=== PATIENT | female | born 1930 | race Caucasian/White ===

== ENCOUNTER 2016-12-09 20:47 | Inpatient (IN) | payer MEDICARE, OTHER ==
--- NOTE | ~2016-12-09 | CR72 ---
[facility] A Service of [facility] RADIOLOGY TEXT RESULTS PATIENT: IBETH BARNES LOCATION: [address] : 29 UNIT #: [id number] AGE: [address]: Ina Mcneil MD SEX: F ORDER DR: [id number] [facility] [address] [place], [place] [address] [id number] MR#: [id number] Acc #: [id number] NAME: IBETH BARNES : 1930 SEX: F STUDY DATE/TIME: 12/10/2016 0902 UNIT: [facility] ROOM: [facility] STUDY DESCRIPTION: CR Chest Single View Portable Attending Physician: Ina Mcneil M.D. Ordering Physician: Donna Del Toro M.D. Primary Care Physician: Herbert Maya M.D. MEDICAL IMAGING REPORT This report is preliminary unless electronic signature is present EXAM Chest, portable, 12/10/2016, 0902 hours. CLINICAL HISTORY 78-year-old woman with abdominal distension for 2 days. Central line placement today. COMPARISON 08/17/2012 FINDINGS Portable upright chest demonstrates low lung volumes. Endotracheal tube is 1.5 cm above the oswaldo. There is a left subclavian dual lead pacer with leads over the right atrium and right ventricle. There is a right IJ catheter with tip in the lower aspect of the right atrium. If it is desired to have the tip in the SVC, I would suggest withdrawing the catheter 7-8 cm. Cardiac size is increased from 2012. There is mild pulmonary vascular prominence without definite edema, effusion, or pneumothorax. There is gaseous distension of loops of bowel seen in the upper abdomen. IMPRESSION 1. Low lung volume film with moderate enlargement of the cardiac silhouette increased from 08/17/2012. Findings could represent worsening cardiomegaly and/or pericardial fluid. 2. Endotracheal tube tip is 1.5 cm above the oswaldo. 3. Right IJ catheter tip is in the inferior aspect of the right atrium. If it is desired to have the tip in the SVC, I would suggest withdrawing the catheter 7-8 cm. 4. Dual lead left subclavian pacer/AICD has leads terminating over the right atrium and right ventricle. There is no pneumothorax. 5. Mild perihilar vascular crowding without definite edema or effusion. [facility] A Service of [facility] RADIOLOGY TEXT RESULTS PATIENT: IBETH BARNES LOCATION: [address] : 29 UNIT #: [id number] AGE: [address]: Ina Mcneil MD SEX: F ORDER DR: Dictated by... Gin Ross M.D. THIS IS AN ELECTRONICALLY VERIFIED REPORT Gin Ross M.D. at 12/10/2016 2:32 PM RAYA/destiny TD: 12/10/2016 09:44 JOB #: [id number] MEDICAL IMAGING REPORT Page 1 of 1 COPY
--- NOTE | ~2016-12-09 | CO ---
Unit #: [id number] #: [id number] Patient: IBETH BARNES [id number] [address] [place], [place] [address] [id number] MR#: [id number] NAME: IBETH BARNES ROOM: [facility] Age: 86 Sex: F Admission Date: 12/10/2016 : 1930 Attending Physician: Ina Mcneil M.D. Primary Care Physician: Herbert Maya M.D. Consultation Date: 12/10/2016 CONSULTATION REPORT REASON FOR CONSULTATION Acute on chronic kidney disease. HISTORY OF PRESENT ILLNESS Ms. Barnes is an 86-year-old female who is currently sedated and on the ventilator and unable to give any history. All of the history was obtained from the chart, nursing and family who is present. The patient has known chronic kidney disease and sees my partner, Dr. Martin at the office. It looks like her baseline creatinine is in the low to mid 1 range. She does have a history of hypertension and heart disease. The patient has chronic pain issues and takes oxycodone for that. She has severe arthritic issues. She had presented to an outlying hospital with complaints of abdominal pain and constipation. This was associated with nausea and vomiting as well as abdominal distension. It looks like they tried to do a disimpaction in the emergency room and also a soap suds enema. The patient decompensated overnight and has been moved to the ICU with respiratory failure and ventilator requirement. She is basically making no urine at this time. Surgery is being considered by the family. She is also severely acidotic, requiring the ventilator and bicarbonate supplementation. No rashes or itching noted. She is noted to be on an YASMIN inhibitor and a diuretic at home. PAST MEDICAL HISTORY 1. Chronic kidney disease stage 3. 2. Hypertension. 3. Congestive heart failure requiring a defibrillator. Ejection fraction unknown. 4. Chronic neck and back pain as well as joint pain. 5. Hyperlipidemia. 6. Migraine headaches. 7. Gastroesophageal reflux disease with AVMs. 8. Degenerative joint disease. 9. Spinal stenosis. 10. Valvular heart disease. PAST SURGICAL HISTORY 1. Appendectomy. 2. Hysterectomy. 3. Breast biopsies. SOCIAL HISTORY The patient is a lifelong nonsmoker. No alcohol or drug abuse. She cares for a younger daughter with Down syndrome who is actually in the ICU a couple of beds down. Unit #: [id number] #: [id number] Patient: IBETH BARNES FAMILY HISTORY Negative for kidney disease or dialysis. There is a family history of cancer and high blood pressure. ALLERGIES Morphine, hydantoins, penicillin, phenytoin and Tolectin. HOME MEDICATIONS 1. Amitriptyline. 2. Zocor. 3. Aspirin. 4. Amlodipine. 5. Carvedilol. 6. Lisinopril. 7. Aldactone. 8. OxyContin. 9. Klonopin. 10. Prilosec. 11. Lasix. REVIEW OF SYSTEMS A complete 12-point review of systems was attempted, but simply unable to be obtained with the patient being on the ventilator. I am unaware of any reports of bright red blood per rectum or melena with these GI issues. No reports of hematuria. Unless otherwise indicated, the review of systems was not able to be obtained. PHYSICAL EXAMINATION GENERAL: This is an 86-year-old female, sedated and on the ventilator, currently in no acute distress. VITALS: Afebrile, pulse 98, respiratory rate 20, blood pressure got as low as 40s on the monitor. Currently slightly above 100. Ins and outs, urine output minimal to none. HEENT: Head is atraumatic, normocephalic. Eyes show pink conjunctivae with no scleral icterus. No nosebleed. She does have an NG tube to suction in place. The patient is orally intubated. NECK: No rigidity. LUNGS: Coarse breath sounds bilaterally with no wheezing. Breathing is nonlabored on the ventilator. HEART: Currently regular rate with murmur present. No gallop or rub appreciated. ABDOMEN: Distended and firm. No bowel sounds present. Appears tender, but difficult to assess with her being sedated. EXTREMITIES: No lower extremity cyanosis or pitting edema. SKIN: Dry with no rashes. GENITOURINARY: Iverson catheter is in place with minimal nonbloody urine. MUSCULOSKELETAL: The patient does have chronic arthritic changes in her hands. No joint effusions noted. LYMPH: There is no neck or cervical lymphadenopathy. PSYCHIATRIC: Unable to assess. NEUROLOGIC: Unable to assess. DIAGNOSTIC STUDIES IMAGING: CT of the abdomen and pelvis without contrast showed kidneys had no evidence of obstruction or stones. There was marked distension of the transverse colon and increased stool throughout the sigmoid colon with possible fecal impaction. Unit #: [id number] #: [id number] Patient: IBETH BARNES Chest x-ray earlier this morning showed an AICD in place. Mild perivascular vascular crowding without edema or effusion. LABORATORY: CBC today, white blood cell count 14, hemoglobin 11, platelets 217. Most recent ABG showed a pH of 7.34, pCO2 37, pO2 373, bicarb 20. TSH was normal. Initial ABG this morning when she decompensated pH was 7, pCO2 59, pO2 83, bicarb 15. Chemistry last night, sodium 135, potassium 4, chloride 105, bicarb 17, glucose 260, BUN 45, creatinine 2.3. Prior creatinines before this, in 2013, ranged between 1.1 and 1.5. Previous urinalysis testing has been negative for blood or protein. CARDIOVASCULAR: In January 2008 her echo showed moderate mitral regurgitation, moderate to severe tricuspid regurgitation, with some mild pulmonary hypertension. ASSESSMENT 1. Acute on chronic kidney disease stage 3. Again, the patient does have underlying chronic kidney disease and sees my partner in the office. It looks to be related to nephrosclerosis with her history of hypertension and bland urinalysis in the past. Her acute kidney injury is likely all prerenal and transitioning into ATN from abdominal sepsis and hypotension. She would also have altered renal compensation with her lisinopril use. She was also on Lasix and Aldactone for her heart failure, which may be contributing to the prerenal picture as well. All of her diuretics and blood pressure medicines have been held. She will need dialysis and the family has decided on surgery, so we will be doing SILVERING APPLICATOR immediately postoperative and I have already talked to Dr. Del Toro about placing a Shiley. 2. Hypotension. The patient's blood pressure has come up with multiple fluid boluses and pressors, which we will continue. 3. Abdominal sepsis on antibiotics. 4. Combined acidosis. The patient is now on the ventilator and has received IV bicarbonate times five. 5. History of hypertension. 6. History of congestive heart failure with atrial implantable cardioverter defibrillator placement, as well as valvular heart disease and pulmonary hypertension. 7. Respiratory failure. 8. Chronic pain syndrome. 9. History of GAZE, which may be related to right-sided heart failure and pulmonary hypertension. 10. I did discuss with the large family at length. I do think her prognosis is very poor. They were discussing whether or not to take her to surgery and they will be relaying their answer to Dr. Watts. If they decide to go ahead and proceed with surgery, we will plan on doing SILVERING APPLICATOR immediately postop. 11. I did discuss this case with Dr. Zepeda and Dr. Del Toro. I would like to thank Dr. Zepeda for this consult and the opportunity to participate in the evaluation and care of Ms. Barnes. Dictated by... Malcolm Wayne Jr., M.D. [facility]matthew Unit #: [id number] #: [id number] Patient: IBETH BARNES TD: 12/10/2016 13:52 JOB #: [id number] CONSULTATION REPORT Page 1 of 1 X Malcolm Wayne MD X CONSULTATION REPORT
--- NOTE | ~2016-12-09 | HP ---
Unit #: [id number] #: [id number] Patient: IBETH BARNES [id number] [address] [address] [id number] MR#: [id number] NAME: IBETH BARNES ROOM: 219 Age: 86 Sex: F Admission Date: 12/10/2016 : 1930 Attending Physician: Ina Mcneil M.D. Primary Care Physician: Herbert Maya M.D. HISTORY AND PHYSICAL CHIEF COMPLAINT Obstipation, fecal impaction, acute kidney injury. HISTORY OF PRESENT ILLNESS This 86-year-old female who has chronic pain issues, on chronic oxycodone, chronic kidney disease, was transferred from [facility] emergency department for increasing abdominal pain and constipation. The patient's last bowel movement was a week ago. Yesterday, the patient developed generalized abdominal pain with nausea, vomiting and abdominal distension. The patient recently developed decreased p.o. intake and decreased urinary output yesterday. She presented to [facility] emergency department late last evening where a CT scan shows markedly distended colon with increased stool in the sigmoid, probable constipation with possible fecal impaction. She was partially disimpacted by the ER physician at [facility] ER and given a soap suds enema without much output. A Iverson catheter was placed and the patient had little, if any, urine output. She was given Zofran, IV fluids and a tiny dose of Dilaudid before midnight. She was sent to this facility where she does have marked abdominal distension on exam and generalized abdominal tenderness. According to the nurse, the patient still has significant stool in the rectal vault. A colonoscopy was performed 10/2013 for obstipation and the patient's colon was normal. PAST MEDICAL HISTORY 1. Chronic neck and back pain. 2. Essential hypertension. 3. Chronic kidney disease. 4. Hyperlipidemia. 5. Migraine headaches. 6. GERD and hiatal hernia. An EGD was performed 10/2013 revealing a medium sized hiatal hernia, classic watermelon stomach with AVMs which were ablated. 7. DJD. 8. Spinal stenosis status post epidural steroid injections. 9. History of valvular heart disease. 10. Appendectomy. 11. Total abdominal hysterectomy. 12. Benign breast biopsies. SOCIAL HISTORY The patient takes care of her younger daughter with Down syndrome. The Unit #: [id number] #: [id number] Patient: IBETH BARNES patient herself is a lifelong nonsmoker, does not drink alcohol. FAMILY HISTORY Hypertension and throat cancer. ALLERGIES Morphine, Dilantin, penicillin, Tolectin. HOME MEDICATIONS I have a medication reconciliation from [facility]. We will verify these medicines. These list: 1. Elavil 50 mg daily. 2. Zocor 20 mg daily. 3. Aspirin 81 mg daily. 4. Norvasc 5 mg daily. 5. Coreg 6.25 mg b.i.d. 6. Lisinopril 5 mg daily. 7. Aldactone 12.5 mg daily. 8. Oxycodone 10 mg q.i.d. 9. Klonopin 0.5 mg q.i.d. 10. Prilosec 20 mg daily. 11. Lasix 20 mg daily. REVIEW OF SYSTEMS Notable for abdominal pain, hypertension, chronic kidney disease, hyperlipidemia, migraines, GERD, DJD, spinal stenosis, above-mentioned surgeries, constipation, abdominal pain, nausea, vomiting and distension. All other systems were reviewed and are negative. PHYSICAL EXAMINATION GENERAL APPEARANCE: Uncomfortable appearing, somewhat pale, 86-year-old female. VITAL SIGNS: Temperature 97.7. Pulse 81. Respiration 16. Blood pressure 126/61. O2 saturation 97% on room air. HEENT: Eyes: PERRLA. Extraocular muscles are intact. Pharynx is benign. NECK: Supple without adenopathy or thyromegaly. CHEST: Clear. CARDIAC: Normal S1, S2 without S3, S4 or murmur. ABDOMEN: Bowel sounds are extremely hypoactive. Abdomen is distended. The patient has generalized abdominal tenderness without guarding or rebound. EXTREMITIES: Without clubbing, cyanosis or edema. NEUROLOGIC: The patient is awake, alert. She is oriented. Her cranial nerves are intact. She has equal strength throughout but is quite weak on exam. DIAGNOSTIC STUDIES LABORATORY: Hematocrit 42.9, WBC count 13.2, normal platelet count. SMA-12: Glucose 260, BUN 45, creatinine 2.3, CO2 17. Previous creatinine was 1.1 three years ago. IMAGING: CT scan shows marked distension of the colon with constipation, stool in the sigmoid region and fecal impaction, large hiatal hernia. ASSESSMENT 1. Fecal impaction/obstipation. No BM times one week. The patient presents with nausea, vomiting, abdominal pain and CT scan showing marked distension of the colon. Last colonoscopy was 2013 and was Unit #: [id number] #: [id number] Patient: IBETH BARNES normal. 2. Acute on chronic kidney disease. 3. Essential hypertension. 4. Chronic pain issues on opiates. 5. GERD with last EGD revealing watermelon stomach and AVMs. 6. Diet controlled AODM with hyperglycemia. PLAN 1. IV fluids. 2. Disimpaction. 3. Repeat labs this morning. 4. Hold diuretics, Elavil, oxycodone. 5. SCDs for DVT prophylaxis. 6. Obtain TSH. 7. Consultants depending on response to above. 8. Send urinalysis after IV fluids have been started. Dictated by Imelda Morales M.D. AML/bd TD: 12/10/2016 07:08 JOB #: [id number] HISTORY AND PHYSICAL Page 1 of 1 X Imelda Morales MD X HISTORY AND PHYSICAL
--- NOTE | ~2016-12-09 | OR ---
Unit #: [id number] #: [id number] Patient: IBETH BARNES [id number] [address] [address] [id number] I MR#: [id number] NAME: IBETH BARNES ROOM: [facility] Date of Procedure: 12/10/2016 Admission Date: 12/10/2016 Surgeon: Donna Del Toro M.D. : 1930 Attending Physician: Ina Mcneil M.D. Primary Care Physician: Herbert Maya M.D. PROCEDURE OPERATIVE NOTE PREOPERATIVE DIAGNOSIS Respiratory failure, shock. POSTOPERATIVE DIAGNOSIS Respiratory failure, shock. PROCEDURE PERFORMED 1. Endotracheal intubation. 2. Right internal jugular central venous catheter placement for shock. 3. Right femoral arterial line placement. INDICATION Respiratory failure. ANESTHESIA MAC. PROCEDURE 1. After placing the patient in the appropriate position with all aseptic technique, a #18 endotracheal tube was passed through the vocal cord under direct visualization. No complications happened. Post procedure chest x-ray was ordered. 2. Right neck was prepped with ChloraPrep and a triple lumen central venous catheter was inserted in the right internal jugular vein. The guidewire was removed in total and line was secured with two interrupted sutures in place. No complications happened. All three ports were flushed and working. Chest x-ray was ordered. No complications happened. 3. With modified Seldinger technique, under all aseptic technique, after preparing the skin of the right groin with ChloraPrep, a 20 gauge arterial catheter was placed in the right femoral vein. Good plethysmography on the monitor. The patient tolerated the procedure very well. The line was secured with one interrupted suture in place. No complications happened. Sterile dressing was applied. Dictated by... Jazzy Romero Unit #: [id number] #: [id number] Patient: IBETH BARNES TD: 12/10/2016 16:13 JOB #: [id number] PROCEDURE OPERATIVE NOTE Page 1 of 1 X Alverto,Sajjad MD X PROCEDURE OPERATIVE NOTE
--- NOTE | ~2016-12-09 | CO ---
Unit #: [id number] #: [id number] Patient: IBETH BARNES [id number] [address] [address] [id number] I MR#: [id number] NAME: IBETH BARNES ROOM: [facility] Age: 86 Sex: F Admission Date: 12/10/2016 : 1930 Attending Physician: Ina Mcneil M.D. Primary Care Physician: Herbert Maya M.D. CONSULTATION REPORT CHIEF COMPLAINT Abdominal pain. REASON FOR CONSULTATION Critical care management. HISTORY OF PRESENT ILLNESS The patient is an 86-year-old female with a past medical history of chronic pain on chronic oxycodone, chronic kidney disease, and presents with a complaint of abdominal pain. She was found to have constipation with bowel obstruction and was transferred to the ICU for code blue. I responded. The patient was agonally breathing and I intubated her with a size 8 endotracheal tube. Currently she is hypotensive on the ventilator. PAST MEDICAL HISTORY 1. Chronic pain. 2. Chronic kidney disease. 3. Hypertension. 4. Gastroesophageal reflux disease. 5. Spinal stenosis. PAST SURGICAL HISTORY Appendectomy. SOCIAL HISTORY Nonsmoker. No alcohol or drug abuse. FAMILY HISTORY Hypertension, throat cancer. ALLERGIES Morphine, Dilantin, penicillin, Tolectin. CURRENT MEDICATIONS Reviewed. REVIEW OF SYSTEMS Unobtainable. PHYSICAL EXAMINATION VITALS: Temperature 99, pulse 88, blood pressure 90/60. LUNGS: Bilateral air entry. Bilateral mild rhonchi. HEART: S1 plus S2. ABDOMEN: Distended. Bowel sounds absent. Unit #: [id number] #: [id number] Patient: IBETH BARNES EXTREMITIES: No edema. NEUROLOGIC: Unresponsive. DIAGNOSTIC STUDIES IMAGING: Reviewed. LABORATORY: Reviewed. ASSESSMENT 1. Acute hypoxic respiratory failure. 2. Metabolic acidosis. 3. Acute renal failure. 4. Bowel obstruction. 5. Septic shock. 6. Possible necrotic bowel. PLAN At this point the plan is to continue the patient on ventilator support, broad spectrum IV antibiotics, IV fluids, may need dialysis. Surgical consultation. The patient will be closely monitored. Total critical care time is 75 minutes in direct critical care of this patient. Dictated by... Donna Del Toro M.D. Karine TD: 12/10/2016 16:06 JOB #: [id number] CONSULTATION REPORT Page 1 of 1 X Donna Del Toro MD CONSULTATION REPORT
--- NOTE | ~2016-12-09 | CO ---
Unit #: [id number] #: [id number] Patient: IBETH BARNES [id number] [address] [address] [id number] MR#: [id number] NAME: IBETH BARNES ROOM: [facility] Age: 86 Sex: F Admission Date: 12/10/2016 : 1930 Attending Physician: Ina Mcneil M.D. Primary Care Physician: Herbert Maya M.D. Consultation Date: 12/10/2016 CONSULTATION REPORT HISTORY AND EXAM Ms. Barnes is an 86-year-old female who has had a long history of opioid-induced constipation and chronic abdominal pain. Over the last 24 hours, she became more distended, having more discomfort, and came to the emergency room where a CT scan was consistent with impaction. There was no evidence of any perforation or other acute abnormalities. Patient had a history of multiple co-morbid conditions most significantly cardiovascular disease and peripheral vascular disease. While in the unit, she had an arrest and was noted to have a markedly distended abdomen. A pH was noted to be 7. She was resuscitated by the tar heater and she currently is on Levophed and Inder-Synephrine with a blood pressure of 46/31. Fluid and bicarbonate resuscitation has been ordered. Repeat labs have been ordered and are pending at this time. PAST MEDICAL HISTORY 1. Chronic pain syndrome. 2. Hypertension. 3. Chronic kidney disease. 4. Hyperlipidemia. 5. Migraine headaches. 6. Reflux. 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 8. Degenerative disk disease. 9. Spinal stenosis. 10. Valvular heart disease. 11. Pacemaker placement. 12. Appendectomy. 13. Total abdominal hysterectomy. 14. Previous breast biopsies. 15. Diabetes. ALLERGIES Morphine, Dilantin, penicillin, and Tolectin. CURRENT MEDICATIONS 1. Protonix. 2. Zofran. 3. Zocor. 4. MiraLax. 5. Levophed. 6. Inder-Synephrine. 7. Sodium bicarbonate. 8. Versed. 9. Fentanyl. Unit #: [id number] #: [id number] Patient: IBETH BARNES 10. Dilaudid. HOME MEDICATIONS 1. Elavil. 2. Zocor. 3. Aspirin. 4. Norvasc. 5. Coreg. 6. Lisinopril. 7. Aldactone. 8. Oxycodone. 9. Klonopin. 10. Prilosec. 11. Lasix. FAMILY HISTORY Diabetes and hypertension and laryngeal carcinoma. SOCIAL HISTORY Patient is a nonsmoker, nondrinker. Previously lived at home with a special needs daughter. REVIEW OF SYSTEMS Unobtainable. PHYSICAL EXAMINATION VITAL SIGNS: Current vital signs: Temperature is 97.6, pulse 98, respirations 22, blood pressure 46/31. GENERAL: The patient is intubated and sedated. HEENT: Unremarkable. Regular rhythm. LUNGS: Clear anteriorly. ABDOMEN: Markedly distended and tympanic. There is no mass. The abdomen is not rigid but exam is not reliable due to pain medication and sedation and sepsis. EXTREMITIES: No edema. DIAGNOSTIC STUDIES LABORATORY: Repeat chemistries are pending. Blood gas shows a pH of 7.001, pCO2 of 59.5, pO2 of 83 on 100% FIO2. Repeat CBC shows a hemoglobin of 12.4, white count 18,400 with 15% bands, platelets 223,000. Lactic acid, procalcitonin, chemistries pending. IMAGING: KUB this morning shows no free air. Chest x-ray this morning shows no free air. CT scan last night showed a chronically distended colon with impaction in the rectosigmoid. ASSESSMENT AND PLAN Patient with sepsis and intra-abdominal catastrophe probably related to ischemic bowel, although there is a possibility of bowel perforation. There does not appear to be any free air on chest x-ray or KUB. Given her past medical history and her arrest, she probably has diffuse ischemic bowel. She is being aggressively resuscitated at this time. I have discussed the severity of the situation with the family and discussed at length the differential diagnosis. At this time, this patient is at a high risk of demise. We discussed the possibility of surgical exploration Unit #: [id number] #: [id number] Patient: BARNESIBETH to confirm the diagnosis and to see if there is a surgically resectable cause of the acute sepsis that may improve her chances of survival but even with surgery, her chance of survival is very low. This is certainly a high-risk procedure. We also discussed that if they opt not to have surgery that we will continue to resuscitate her and support her and see if she can recover with nonoperative management. At this time, we are awaiting repeat labs. We are continuing resuscitation and the family is meeting to discuss their options. Dictated by... Korey Watts M.D. Shari TD: 12/10/2016 12:01 JOB #: [id number] CONSULTATION REPORT Page 1 of 1 X Korey Watts MD X CONSULTATION REPORT
--- NOTE | ~2016-12-09 | DS ---
Unit #: [id number] #: [id number] Patient: IBETH BARNES [id number] [address] [address] [id number] I MR#: [id number] NAME: IBETH BARNES ROOM: [facility] Age: 86 Sex: F Admission Date: 12/10/2016 : 1930 Discharge Date: 12/10/2016 Attending Physician: Ina Mcneil M.D. Primary Care Physician: Herbert Maya M.D. DISCHARGE SUMMARY SUMMARY DATE OF December 10, 2016 PRINCIPAL DIAGNOSES 1. Septic shock secondary to acute abdomen. 2. Acute abdomen, question diffuse ischemic colitis versus perforated viscus. 3. Acute hypoxic respiratory failure. 4. Acute kidney injury. 5. Severe mixed respiratory and metabolic acidosis. 6. Chronic kidney disease stage 3. CONSULTANTS 1. Dr. Del Toro, Pulmonology. 2. Dr. Wayne, Nephrology. 3. Dr. Watts, General Surgery. PROCEDURES 1. CT scan of the abdomen and pelvis, on December 09, 2016, with a large paraesophageal hiatal hernia. Marked distension of transverse colon was noted. Increased stool throughout the sigmoid colon noted. Fecal impaction noted. 2. Chest x-ray, on December 10, 2016, with low lung volumes and cardiac enlargement. 3. KUB, on December 10, 2016, with gaseous distension and multiple loops of bowel. CLINICAL HISTORY AND HOSPITAL COURSE Ms. Barnes is an 86-year-old female brought to the emergency department with complaints of abdominal pain. The patient was having decreased urine output and decreased stool output. Please refer to H and P for further details. CT scan of the abdomen and pelvis revealed only significant obstipation in addition to a fecal impaction. The patient underwent manual disimpaction in the ER. Creatinine was also found to be elevated at 2.3, up from a last known baseline of approximately 1.1. The patient was subsequently admitted. The patient was initially admitted to the med/surg floor and was stable. However, the patient abruptly developed a decline in mental status and subsequently developed difficulty breathing. A MET was called and they were unable to palpate a blood pressure. The patient was emergently transferred to the ICU and intubated by Dr. Del Toro. Unit #: [id number] #: [id number] Patient: IBETH BARNES The patient emergently underwent central line placement following intubation and was bolused five liters of normal saline. She ultimately required pressure support with three different medications. The patient's physical exam reveals significant abdominal distension. While she did have bowel sounds, repeat KUB was done and did not reveal any bowel perforation. However, clinical suspicion for perforation and/or diffuse ischemic colitis was high and Dr. Watts came and evaluated the patient. There was discussion with family by both myself and Dr. Watts regarding surgical evaluation of patient's abdomen. However, patient was clinically declining fast with a significant mixed respiratory and metabolic acidosis and her progressive and significant hypotension. She also had minimal urine output and creatinine continued to worsen for which initially the plan was Shiley placement and CRRT. However, after discussion with family, they ultimately opted for comfort measures. The patient on December 10, 2016 at 1614 in the afternoon. Dictated by... Ina Mcneil M.D. TERRY/shaan TD: 12/12/2016 15:24 JOB #: [id number] DISCHARGE SUMMARY Page 1 of 1 X Ina Mcneil MD DISCHARGE SUMMARY
--- NOTE | ~2016-12-09 | CT4 ---
[facility] A Service of [facility] RADIOLOGY TEXT RESULTS PATIENT: IBETH BARNES LOCATION: SED : 29 UNIT #: [id number] AGE: [address]: Noah Jackson MD SEX: F ORDER DR: [id number] [place] [id number] MR#: [id number] Acc #: [id number] NAME: IBETH BARNES : 1930 SEX: F STUDY DATE/TIME: 12/09/2016 22:12 UNIT: SED ROOM: STUDY DESCRIPTION: CT Abd and Pelv Wo Cont Attending Physician: Noah Jackson M.D. Ordering Physician: Noah Jackson M.D. Primary Care Physician: Herbert Maya M.D. MEDICAL IMAGING REPORT This report is preliminary unless electronic signature is present. EXAM Abdomen and pelvis CT without contrast HISTORY Nausea, vomiting beginning this evening accompanied by abdominal pain COMPARISON 09/16/[address] exam was performed with one or more of the following radiation dose reduction techniques: automatic exposure control, adjustment of mA and/or kV according to patient size, and iterative reconstruction. Axial images were obtained without contrast FINDINGS There is a large paraesophageal hiatal hernia noted once again. Most of the stomach is above the diaphragm. In the abdomen the liver, spleen and pancreas are normal in size. The kidneys show no evidence of obstruction or stone disease. There is marked distension of transverse colon. There is increased stool through the sigmoid colon. Possible fecal impaction versus adynamic ileus. The small bowel pattern is unremarkable. IMPRESSION Markedly distended colon with increased stool in the sigmoid. Probable constipation with possible fecal impaction. The small bowel pattern is normal. No evidence of a mechanical bowel obstruction. No acute or inflammatory changes are seen elsewhere in the abdomen or pelvis. Large hiatal hernia is again noted. [facility] A Service [facility] RADIOLOGY TEXT RESULTS PATIENT: IBETH BARNES LOCATION: SED : 29 UNIT #: [id number] AGE: [address]: Noah Jackson MD SEX: F ORDER DR: Dictated by... Korey Car M.D. THIS IS AN ELECTRONICALLY VERIFIED REPORT Korey Car M.D. at 12/10/2016 10:08 AM DENTON/joy TD: 12/09/2016 23:23 JOB #: [id number] MEDICAL IMAGING REPORT Page 1 of 1
--- NOTE | ~2016-12-09 | CR7 ---
[facility] A Service of [facility] RADIOLOGY TEXT RESULTS PATIENT: IBETH BARNES LOCATION: CICCU3 CICCU3 : 29 UNIT #: [id number] AGE: [address]: Ina Mcneil MD SEX: F ORDER DR: [id number] [facility] [address]. [place], [place] [address] [id number] MR#: [id number] Acc #: [id number] NAME: IBETH BARNES : 1930 SEX: F STUDY DATE/TIME: 12/10/2016 09:04 UNIT: [facility] ROOM: [facility] STUDY DESCRIPTION: CR Abdomen Single AP View Attending Physician: Ina Mcneil M.D. Ordering Physician: Donna Del Toro M.D. Primary Care Physician: Herbert Maya M.D. MEDICAL IMAGING REPORT This report is preliminary unless electronic signature is present EXAM Abdomen 1 view 12/10/2016 0904 hours HISTORY Abdominal distention since yesterday, central line placement. COMPARISON CT abdomen 12/09/2016. FINDINGS 2 supine views of the abdomen demonstrate gaseous distention of multiple loops of bowel which appear to be colonic similar to CT yesterday. There is increased stool in the sigmoid colon. No definite small bowel distention or suspicious calcification. There is hardware present at both hips. IMPRESSION There is persistent gaseous distention of multiple loops of bowel which appear to be colonic similar to CT scan 12/09/2016. No definite small bowel distention. Dictated by... Gin Ross M.D. THIS IS AN ELECTRONICALLY VERIFIED REPORT Gin Ross M.D. at 12/10/2016 2:32 PM RAYA/ayesha TD: 12/10/2016 09:49 [facility] A Service of [facility] RADIOLOGY TEXT RESULTS PATIENT: IBETH BARNES LOCATION: CICCU3 CICCU3 : 29 UNIT #: [id number] AGE: [address]: Ina Mcneil MD SEX: F ORDER DR: JOB #: [id number] MEDICAL IMAGING REPORT Page 1 of 1 COPY
--- NOTE | ~2016-12-09 | A ---
[facility] Nutrition Therapy DATE: 12/10/16 Patient: IBETH BARNES Physician: MITESH Address: [address] 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 Patient admitted with SBO, note PMH of chronic constipation, CT scan showed no free air, necrotic bowel with fecal impaction. No perforation suspected. She was a rapid response call and was transferred to ICU 3, was then a code blue. She is now intubated; NPO, previously on clear liquid diet. It was noted she'd been having decreased PO intake DOUGH CUTTER due to N/V and abdominal distension, scored 0 points on the malnutrition risk score. She hadn't had a BM in 1 week DOUGH CUTTER, however has some stool today. RN states she may require CRRT, possible surgery. See RD recs below, will follow closely. Dx: Inadequate protein energy intake r/t clinical condition AEB NPO, intubated. Intervention: Nutrition support?, bowel regimen Monitoring, Evaluation and Goals: 1. Nutrition support consistent with estimated needs. 2. Promote regular GI function. 3. Improvement in labs. [facility] Nutrition Therapy DATE: 12/10/16 Patient: IBETH BARNES Physician: MITESH Address: [address] [place] [address] Room/Bed: [address], Zip: [place] [id number] Admit Date: 12/10/16 Date of : [birth year] Height: Weight: 142 64.41 Monitor: Per protocol, criteria to determine if above goals met Recommendations: 1. If the patient is to remain intubated > [address] DHT and initiating enteral nutrition with Jevity 1.5 @ 10 ml/hr, increase by 10 ml q 8 hours until goal rate of 45 ml/hr is reached. Please order 30 ml daily Prostat to be given per tube. This nutrition regimen would provide 1720 kcals, 84 g protein and 821 ml water. Free water flushes once at goal rate per MD. If the patient's K/Phos become elevated suggest Nepro formula, start @ 10 ml/hr and increase by 10 ml q 8 hours until goal rate of 40 ml/hr + 30 ml Prostat daily to provide 1828 kcals, 93 g protein and 701 ml water. Free water per MD. 2. If enteral nutrition is not indicated suggest initiating TPN @ 20 ml/hr, increasing to goal rate slowly over 2-4 days to 65 ml/hr with 25% dextrose, 5% AA standard formula. Give 20% 250 ml lipids on /W/F to prevent fatty acid deficiency. This regimen would provide: -1326 dextrose kcals (GUR = 4.2) -78 g protein (1.2 g/kg) -500 lipid kcals on /W/F -1638 kcals on non-lipid days / 2138 kcals on lipid days (7 day average = 1852 kcals/day) *If TPN is started closely monitor glucose and lytes, as the patient is at risk for refeeding syndrome noting poor oral intake x 1 week DOUGH CUTTER. Aggressively replete lytes to WNL as needed. 3. Bowel regimen prn. 4. If extubated advance to clear liquid diet with Ensure Clear TID. Advance as tolerated to GI soft diet. Respectfully, Yuli Jackson, RANULFO, LD [facility] cc: client file
[~2016-12-09 20:47] MED LIST: ADVAIR 1001 DISK W/D PO; ALBUTEROL17 GM INH; ALDACTONE25 MG PO; AMITRYPTYLINE PO; AMLODIPINE BES2.5 MG PO; AMLODIPINE BESYL5 MG PO; ANTIVERT PO; ASPIRIN EC81 M1 PO; ASPIRIN PO; ASPIRIN81 M1 PO; AVAPRO PO; AVAPRO150 MG PO; BACTRIM DS TABL1 TA1 PO; CARVEDILOL6.25 MG PO; CELEBREX PO; CELEBREX100 MG PO; CIPRO; CIPRO PO; CIPRO250 M1 PO; DARVOCET-N 1001 TA1 DOB; DARVOCET-N 1001 TAB PO; HYCODAN60 ML 5MG/ PO; HYDROCODON-ACE1 EAC5 PO; KLONOPIN0.5 M1 DOB; LASIX20 MG PO; LEVAQUIN750 MG PO; LEVATOL; LISINOPRIL5 MG PO; MAXZIDE 75/50 T1 TA1 PO; MAXZIDE 75/50 T1 TAB PO; MECLIZINE; MELOXICAM15 MG PO; METFORMIN HCL500 M1; METFORMIN HCL500 M1 PO; MUCINEX D1 TAB.SR1 PO; NORVASC PO; OXYCONTIN10 MG PO; PERCOCET 5-3251 TAB PO; PERCOCET 5/321 UDTAB PO; PERCOCET 71 UDTAB 7. PO; PREDNISONE5 M1 PO; PRILOSEC PO; PRILOSEC20 MG PO; PROMETHAZINE D118 ML PO; SIMVASTATIN20 MG PO; SKELAXIN PO; VICODIN 5/500 T1 TAB PO; ZOCOR PO; ZOCOR20 MG PO; [UNRECOGNIZED DRUG - OTHER] PO
[2016-12-09 21:14] LABS: BASOPHIL% 0.4 % (0-2.5); EOSINOPHIL% 0.3 % (0.0-7.0); HEMATOCRIT 42.9 % (35.0-45.0); HEMOGLOBIN 14.2 gm/dL (12.0-16.0); LYMPHOCYTE# 3.3 X10e3 (1.0-3.5); LYMPHOCYTE% 24.7 % (17.0-45.0); MEAN CELL VOLUME 88.6 FL (83-96); MEAN CORPUSCULAR HEMOGLOBIN 29.4 PG (28-34); MEAN CORPUSCULAR HGB CONC 33.1 g/dL (30-36); MEAN PLATELET VOLUME 7.5 FL (6.5-11.5); MONOCYTE# 0.3 X10e3 (0-1.0); MONOCYTE% 2.3 % (3.0-12.0); NEUTROPHIL# 9.6 X10e3 (1.5-7.1); NEUTROPHIL% 72.3 % (40-75); PLATELET COUNT 322 X10e3 (140-420); RED BLOOD COUNT 4.85 X10e (3.90-5.30); RED CELL DISTRIBUTION WIDTH 14.8 % (11.0-15.5); WHITE BLOOD COUNT 13.2 X10e3 (4.0-10.5)
[2016-12-09 21:15] LABS: DIFF IND NO
[2016-12-09 21:35] LABS: ALBUMIN SERUM 4.4 g/dL (3.5-5.0); BILIRUBIN, DIRECT 0.2 mg/dL (0.0-0.2); BILIRUBIN,INDIRECT 0.4 mg/dL (0.0-0.9); BILIRUBIN,TOTAL 0.6 mg/dL (0.2-2.0); BUN/CREATININE RATIO 19.56; CALCIUM SERUM 9.8 mg/dL (8.4-10.2); CREATININE SERUM 2.3 mg/dL (0.6-1.4); GLOM FILT RATE Estimated 18.5 mL/min (>60); PROTEIN TOTAL SERUM 7.4 g/dL (6.0-8.3)
[2016-12-10] MEDS ORDERED: LASIX20 MG PO ×2 (05:47→05:57)
[2016-12-10] MEDS ORDERED: ZOCOR20 MG PO (05:51)
[2016-12-10] MEDS ORDERED: AMITRIPTYLINE H50 MG PO (05:51)
[2016-12-10] MEDS ORDERED: AMLODIPINE BESYL5 MG PO (05:52)
[2016-12-10] MEDS ORDERED: LO-DOSE ASPIRIN81 M1 PO (05:52)
[2016-12-10] MEDS ORDERED: COREG6.25 M1 (05:53)
[2016-12-10] MEDS ORDERED: LISINOPRIL5 MG PO (05:53)
[2016-12-10] MEDS ORDERED: ALDACTONE PO (05:54)
[2016-12-10] MEDS ORDERED: OXYCONTIN10 MG PO (05:55)
[2016-12-10] MEDS ORDERED: KLONOPIN0.5 MG PO (05:56)
[2016-12-10] MEDS ORDERED: PRILOSEC PO (05:57)
[2016-12-10 08:03] LABS: BASOPHIL% 0.2 % (0-2.5); EOSINOPHIL# 0.1 X10e3 (0-0.7); EOSINOPHIL% 0.3 % (0.0-7.0); HEMATOCRIT 39.8 % (35.0-45.0); HEMOGLOBIN 12.4 gm/dL (12.0-16.0); LYMPHOCYTE# 2.4 X10e3 (1.0-3.5); LYMPHOCYTE% 13.1 % (17.0-45.0); MEAN CELL VOLUME 91.5 FL (83-96); MEAN CORPUSCULAR HEMOGLOBIN 28.6 PG (28-34); MEAN CORPUSCULAR HGB CONC 31.3 g/dL (30-36); MEAN PLATELET VOLUME 8.6 FL (6.5-11.5); MONOCYTE# 1.4 X10e3 (0-1.0); MONOCYTE% 7.5 % (3.0-12.0); NEUTROPHIL# 14.5 X10e3 (1.5-7.1); NEUTROPHIL% 78.9 % (40-75); PLATELET COUNT 223 X10e3 (140-420); RED BLOOD COUNT 4.35 X10e (3.90-5.30); RED CELL DISTRIBUTION WIDTH 14.2 % (11.0-15.5); WHITE BLOOD COUNT 18.4 X10e3 (4.0-10.5)
[2016-12-10 08:20] LABS: DIFF IND YES
[2016-12-10 08:22] LABS: PLATELET ESTIMATE NORMAL (NORMAL); POIKILOCYTOSIS SL
[2016-12-10 08:31] LABS: ARTERIAL BLD GAS O2 SATURATION 93.4 % (90.0-100.0); ARTERIAL BLOOD GAS CARBOXY HB 0.3 %sat (0.0-9.0); ARTERIAL BLOOD GAS HCO3 14.7 mmol/L; ARTERIAL BLOOD GAS MET HB 1.6 %sat (0.0-2.0); ARTERIAL BLOOD GAS PO2 82.6 mmHg (80.0-100)
[2016-12-10 08:34] LABS: ARTERIAL BLOOD GAS ALLEN TEST POS; ARTERIAL BLOOD GAS ART SITE RIGHT RADIAL; ARTERIAL BLOOD GAS DELIVERY NON REBREATHER MASK; ARTERIAL BLOOD GAS PCO2 59.5 mmHg (35.0-45.0); ARTERIAL BLOOD GAS pH 7.001 (7.350-7.450); ARTERIAL DRAW? YES
[2016-12-10 10:21] LABS: ARTERIAL BLD GAS O2 SATURATION 98.1 % (90.0-100.0); ARTERIAL BLOOD GAS HCO3 20.3 mmol/L; ARTERIAL BLOOD GAS MET HB 1.5 %sat (0.0-2.0); ARTERIAL BLOOD GAS PCO2 37.4 mmHg (35.0-45.0); ARTERIAL BLOOD GAS pH 7.343 (7.350-7.450)
[2016-12-10 10:22] LABS: ARTERIAL BLOOD GAS ART SITE ARTERIAL LINE; ARTERIAL BLOOD GAS DELIVERY VENT; ARTERIAL BLOOD GAS VENT MODE AC; ARTERIAL DRAW? YES
[2016-12-10 11:07] LABS: BASOPHIL% 0.1 % (0-2.5); EOSINOPHIL% 0.3 % (0.0-7.0); HEMATOCRIT 34.3 % (35.0-45.0); HEMOGLOBIN 11.1 gm/dL (12.0-16.0); LYMPHOCYTE# 1.8 X10e3 (1.0-3.5); LYMPHOCYTE% 12.6 % (17.0-45.0); MEAN CELL VOLUME 89.9 FL (83-96); MEAN CORPUSCULAR HGB CONC 32.2 g/dL (30-36); MEAN PLATELET VOLUME 8.1 FL (6.5-11.5); MONOCYTE# 1.2 X10e3 (0-1.0); MONOCYTE% 8.5 % (3.0-12.0); NEUTROPHIL# 11.2 X10e3 (1.5-7.1); NEUTROPHIL% 78.5 % (40-75); PLATELET COUNT 217 X10e3 (140-420); RED BLOOD COUNT 3.81 X10e (3.90-5.30); RED CELL DISTRIBUTION WIDTH 14.3 % (11.0-15.5); WHITE BLOOD COUNT 14.3 X10e3 (4.0-10.5)
[2016-12-10 11:08] LABS: DIFF IND NO
[2016-12-10 11:59] LABS: ALBUMIN SERUM 2.5 g/dL (3.5-5.0); BILIRUBIN,TOTAL 0.8 mg/dL (0.2-2.0); CREATININE SERUM 2.6 mg/dL (0.6-1.4); GLOM FILT RATE Estimated 15.9 mL/min (>60); MAGNESIUM 2.4 mg/dL (1.6-3.0); PHOSPHOROUS 4.9 mg/dL (2.5-4.6); POTASSIUM 4.3 mmol/L (3.5-5.1); PROTEIN TOTAL SERUM 4.4 g/dL (6.0-8.3)
[2016-12-10 12:00] LABS: CALCIUM SERUM 7.5 mg/dL (8.4-10.2)
[2016-12-10 12:27] LABS: PROCALCITONIN 57.79 NG/ML
[2016-12-10 12:28] LABS: %MB 3.9 % (0.0-4.0); MB 7.2 ng/ml
== END 2016-12-10 16:14 | disposition expired | DRG 871 ==
LOC: SED 20:47 → CICCU3 12-10 03:30
PROVIDERS: Emergency Medicine; Internal Medicine; Specialist
PROC: 5A1935Z Respiratory Ventilation, Less than 24 Consecutive Hours (ICD-10-PCS; principal; 2016-12-10)
PROC: 0BH17EZ Insertion of Endotracheal Airway into Trachea, Via Natural or Artificial Opening (ICD-10-PCS; 2016-12-10)
PROC: 05HM33Z Insertion of Infusion Device into Right Internal Jugular Vein, Percutaneous Approach (ICD-10-PCS; 2016-12-10)
PROC: B543ZZA Ultrasonography of Right Jugular Veins, Guidance (ICD-10-PCS; 2016-12-10)
PROC: 04HK33Z Insertion of Infusion Device into Right Femoral Artery, Percutaneous Approach (ICD-10-PCS; 2016-12-10)
PROC: 5A2204Z Restoration of Cardiac Rhythm, Single (ICD-10-PCS; 2016-12-10)
DX: A41.9 Sepsis, unspecified organism (principal); R65.21 Severe sepsis with septic shock; N17.0 Acute kidney failure with tubular necrosis; J96.01 Acute respiratory failure with hypoxia; I46.9 Cardiac arrest, cause unspecified; E87.4 Mixed disorder of acid-base balance; K63.1 Perforation of intestine (nontraumatic); K55.9 Vascular disorder of intestine, unspecified; N18.3 Chronic kidney disease, stage 3 (moderate); I13.0 Hypertensive heart and chronic kidney disease with heart failure and stage 1 through stage 4 chronic kidney disease, or unspecified chronic kidney disease; E11.22 Type 2 diabetes mellitus with diabetic chronic kidney disease; I50.9 Heart failure, unspecified; K56.41 Fecal impaction; E78.5 Hyperlipidemia, unspecified; K21.9 Gastro-esophageal reflux disease without esophagitis; M19.90 Unspecified osteoarthritis, unspecified site; Z95.810 Presence of automatic (implantable) cardiac defibrillator; I08.1 Rheumatic disorders of both mitral and tricuspid valves; I27.2 Other secondary pulmonary hypertension; J45.909 Unspecified asthma, uncomplicated; G89.4 Chronic pain syndrome; Z79.82 Long term (current) use of aspirin; Z90.710 Acquired absence of both cervix and uterus; Z88.5 Allergy status to narcotic agent; Z88.0 Allergy status to penicillin; Z88.8 Allergy status to other drugs, medicaments and biological substances; Z79.899 Other long term (current) drug therapy; Z83.3 Family history of diabetes mellitus; Z82.49 Family history of ischemic heart disease and other diseases of the circulatory system; Z80.2 Family history of malignant neoplasm of other respiratory and intrathoracic organs
CPT/HCPCS: 36415; 36600; 51702; 71010; 74000; 74176; 80048; 80053; 80076; 82308; 82550; 82553; 82570; 82803; 82947; 83605; 83690; 83735; 84100; 84300; 84443; 84484; 85025; 86850; 86900; 86901; 87040; 87340; 89190; 94002; 94660; 96361; 96375; 96376; 99285; J1170; J2060; J2310; J2370; J2405; J7060